=== PATIENT | female | born 1990 | race Caucasian/White ===

== ENCOUNTER 2024-05-19 17:37 | Emergency (ER) | payer BC, SELFPAY ==
[2024-05-19 17:50] VITALS: BP 146/88; PULSE 88; RESP 22; TEMP 36.8; O2SAT 99; BMI 41.7
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
--- NOTE | 2024-05-19 18:10 | XR_ITS ---
PROCEDURE INFORMATION: Exam: XR Chest Exam date and time: 05/19/2024 6:19 PM Age: 33 years old Clinical indication: Shortness of breath; Additional info: Short of breath, asthma attack TECHNIQUE: Imaging protocol: Radiologic exam of the chest. Views: 1 view. COMPARISON: No relevant prior studies available. FINDINGS: Lungs: No consolidation. Pleural spaces: No pleural effusion. No pneumothorax. Heart/Mediastinum: No cardiomegaly. Bones/joints: Unremarkable. IMPRESSION: No acute pulmonary findings.
[2024-05-19 18:41] VITALS: PULSE 91
[2024-05-19] MEDS: ALBUTEROL 0.083% 2.5 MG/3 ML NEB 20 MG IH (18:41)
[2024-05-19] MEDS: METHYLPREDNISOLONE SOD SUCC 125MG VIAL 125 MG IM (18:49)
[2024-05-19 19:01] VITALS: BP 130/79; PULSE 92; O2SAT 99
[2024-05-19 19:45] VITALS: PULSE 96
[2024-05-19] MEDS: IPRATROPIUM/ALBUTEROL 3 ML NEB IH (19:45)
[2024-05-19 19:48] VITALS: PULSE 102; PULSE 96
[2024-05-19 19:57] VITALS: BP 132/73; PULSE 110; RESP 18; TEMP 36.5; O2SAT 97
== END 2024-05-19 20:01 | disposition home or self-care (01) ==
LOC: UTC 17:42 → ER 17:45
PROVIDERS: Emergency Provider Emergency Medicine
DX: J45.901 Unspecified asthma with (acute) exacerbation (principal); R06.02 Shortness of breath; R06.00 Dyspnea, unspecified
CPT/HCPCS: 71045; 96372; 99284; J2919; J7613; J7620